=== PATIENT | male | born 1955 | race African-American/Black ===

== ENCOUNTER 2024-03-26 04:54 | Day surgery (SDC) | payer OTHER ==
[2024-03-25 09:45] VITALS: BMI 25.3
[2024-03-26 10:33] VITALS: TEMP 98.2
[2024-03-26 10:46] VITALS: BP 115/78; PULSE 65; RESP 17
== END 2024-03-26 11:05 | disposition home or self-care (01) ==
LOC: JASU-ENDO 04:54
PROVIDERS: ATTEND Internal Medicine Gastroenterology
PROC: 0DJD8ZZ Inspection of Lower Intestinal Tract, Via Natural or Artificial Opening Endoscopic (ICD-10-PCS; principal; 2024-03-26 09:00)
DX: Z12.11 Encounter for screening for malignant neoplasm of colon (principal); K57.30 Diverticulosis of large intestine without perforation or abscess without bleeding; K64.8 Other hemorrhoids

== ENCOUNTER 2024-04-05 07:11 | Inpatient (IN) | payer OTHER ==
[2024-04-05 08:35] LABS: BASO % 0.8 % (0-2.0); EOS % 1.9 % (0-4.5); HEMATOCRIT 47.9 % (35.4-49); HEMOGLOBIN 15.5 GM/dL (11.7-16.9); LYMPH % 36.8 % (8-40); MCH 30.2 pg (25.7-33.7); MCHC 32.4 g/dl (32.0-35.9); MEAN CELL VOLUME 93.3 fl (80-96); MONO % 7.8 % (3.8-10.2); NEUT % 52.7 % (42.8-82.8); PLATELET COUNT 198 10^3/uL (134-434); RBC 5.13 M/mm3 (4.00-5.60); RDW 13.1 % (11.9-15.9); WHITE BLOOD COUNT 2.7 K/mm3 (4.0-10.0)
[2024-04-05 08:51] LABS: INR 1.12 (0.83-1.09); PROTHROMBIN TIME (PATIENT) 12.8 SEC (9.7-13.0)
[2024-04-05 08:54] LABS: ACTIVATED PTT 27.6 SECONDS (25.2-36.5)
[2024-04-05 08:56] LABS: PH,URINE 5.5 (5.0-8.0); URINE APPEARANCE CLEAR; URINE BILIRUBIN NEGATIVE (NEGATIVE); URINE COLOR YELLOW; URINE GLUCOSE (UA) NEGATIVE (NEGATIVE); URINE KETONE NEGATIVE (NEGATIVE); URINE LEUK ESTERASE NEGATIVE (NEGATIVE); URINE NITRITE NEGATIVE (NEGATIVE); URINE PROTEIN NEGATIVE (NEGATIVE); URINE UROBILINOGEN 0.2 mg/dL (0.2-1.0)
[2024-04-05 09:00] LABS: POTASSIUM 3.9 mmol/L (3.5-5.1)
[2024-04-05 09:02] LABS: CALCIUM 9.4 mg/dL (8.5-10.1)
[2024-04-05 09:03] LABS: ALBUMIN 3.7 g/dl (3.4-5.0); BLOOD UREA NITROGEN 7.5 mg/dL (7-18)
[2024-04-05 09:06] LABS: CREATININE 1.1 mg/dL (0.55-1.3)
[2024-04-05 09:07] LABS: BILIRUBIN,TOTAL 1.3 mg/dL (0.2-1)
[2024-04-05 09:08] LABS: TOT PROT 7.3 g/dl (6.4-8.2)
[2024-04-05] MEDS ORDERED: valACYclovir HCL 500 MG TABLET (FP) ONE (22:27)
[2024-04-05] MEDS ORDERED: levETIRAcetam 500 MG TABLET (FP) PO ONE (22:27)
[2024-04-05] MEDS: valACYclovir HCL 500 MG TABLET (FP) PO SCH (22:31)
[2024-04-05] MEDS: levETIRAcetam 500 MG TABLET (FP) PO SCH (22:32)
[2024-04-06] MEDS ORDERED: valACYclovir HCL 500 MG TABLET (FP) ONE ×2 (06:10→13:47)
[2024-04-06] MEDS ORDERED: ACETAMINOPHEN 325 MG TABLET (FP) ONE (06:10)
[2024-04-06] MEDS ORDERED: ACETAMINOPHEN 500 MG TABLET (FP) ONE ×2 (06:13→13:48)
[2024-04-06] MEDS: ACETAMINOPHEN 500 MG TABLET (FP) PO PRN (06:14)
[2024-04-06] MEDS ORDERED: TAMSULOSIN HCL 0.4 MG CAP ONE (07:44)
[2024-04-06] MEDS: TAMSULOSIN HCL 0.4 MG CAP PO SCH (07:46)
[2024-04-06 08:12] LABS: BASO % 0.8 % (0-2.0); EOS % 2.8 % (0-4.5); HEMATOCRIT 46.2 % (35.4-49); HEMOGLOBIN 15.6 GM/dL (11.7-16.9); LYMPH % 38.6 % (8-40); MCH 31.1 pg (25.7-33.7); MCHC 33.8 g/dl (32.0-35.9); MEAN CELL VOLUME 91.8 fl (80-96); MEAN PLT VOLUME 9.5 fl (7.5-11.1); MONO % 8.4 % (3.8-10.2); NEUT % 49.4 % (42.8-82.8); PLATELET COUNT 155 10^3/uL (134-434); RBC 5.03 M/mm3 (4.00-5.60); RDW 13.4 % (11.9-15.9); WHITE BLOOD COUNT 3.9 K/mm3 (4.0-10.0)
[2024-04-06 08:27] LABS: POTASSIUM 4.2 mmol/L (3.5-5.1)
[2024-04-06 08:35] LABS: ALBUMIN 3.5 g/dl (3.4-5.0); CALCIUM 9.2 mg/dL (8.5-10.1); CREATININE 0.9 mg/dL (0.55-1.3)
[2024-04-06 08:36] LABS: BILIRUBIN,TOTAL 1.2 mg/dL (0.2-1); BLOOD UREA NITROGEN 10.6 mg/dL (7-18); TOT PROT 6.9 g/dl (6.4-8.2)
[2024-04-06] MEDS ORDERED: levETIRAcetam 500 MG TABLET (FP) PO ONE ×2 (10:04→20:17)
[2024-04-06] MEDS ORDERED: ENOXAPARIN NA (PORCINE) 40 MG/0.4 ML DISP.SYRIN SQ ONE (10:04)
[2024-04-06] MEDS: ENOXAPARIN NA (PORCINE) 40 MG/0.4 ML DISP.SYRIN SQ SCH (10:17)
[2024-04-06] MEDS: VALPROIC ACID 250 MG CAPSULE PO SCH (10:17)
[2024-04-06 23:56] VITALS: BMI 25.9
[2024-04-07 12:27] LABS: HEMOGLOBIN 16.6 GM/dL (11.7-16.9); MCH 31.7 pg (25.7-33.7); MCHC 34.5 g/dl (32.0-35.9); MEAN CELL VOLUME 91.9 fl (80-96); MEAN PLT VOLUME 9.9 fl (7.5-11.1); PLATELET COUNT 203 10^3/uL (134-434); RBC 5.22 M/mm3 (4.00-5.60); RDW 13.3 % (11.9-15.9); WHITE BLOOD COUNT 3.3 K/mm3 (4.0-10.0)
[2024-04-07 12:51] LABS: POTASSIUM 3.9 mmol/L (3.5-5.1)
[2024-04-07 12:53] LABS: ALBUMIN 3.7 g/dl (3.4-5.0); BLOOD UREA NITROGEN 9.3 mg/dL (7-18); CALCIUM 9.3 mg/dL (8.5-10.1)
[2024-04-07 12:56] LABS: BILIRUBIN,DIRECT 0.3 mg/dL (0.0-0.2); CREATININE 0.9 mg/dL (0.55-1.3)
[2024-04-07 12:58] LABS: BILIRUBIN,TOTAL 1.2 mg/dL (0.2-1); TOT PROT 7.3 g/dl (6.4-8.2)
[2024-04-07] MEDS: GABAPENTIN 100 MG CAPSULE PO SCH (15:55)
[2024-04-07] MEDS: MECLIZINE HCL 12.5 MG TABLET PO PRN (21:16)
[2024-04-08 07:14] LABS: HEMATOCRIT 47.4 % (35.4-49); MCH 31.4 pg (25.7-33.7); MCHC 33.7 g/dl (32.0-35.9); MEAN CELL VOLUME 93.1 fl (80-96); MEAN PLT VOLUME 9.4 fl (7.5-11.1); PLATELET COUNT 198 10^3/uL (134-434); RDW 13.3 % (11.9-15.9); WHITE BLOOD COUNT 3.6 K/mm3 (4.0-10.0)
[2024-04-08 07:25] LABS: POTASSIUM 4.2 mmol/L (3.5-5.1)
[2024-04-08 07:28] LABS: ALBUMIN 3.4 g/dl (3.4-5.0); CALCIUM 9.2 mg/dL (8.5-10.1)
[2024-04-08 07:29] LABS: BLOOD UREA NITROGEN 8.1 mg/dL (7-18)
[2024-04-08 07:30] LABS: MAGNESIUM 2.1 mg/dL (1.8-2.4)
[2024-04-08 07:32] LABS: PHOSPHOROUS 3.7 mg/dL (2.5-4.9)
[2024-04-08 07:33] LABS: BILIRUBIN,TOTAL 1.1 mg/dL (0.2-1); TOT PROT 6.7 g/dl (6.4-8.2)
[2024-04-08] MEDS: GABAPENTIN 100 MG CAPSULE PO SCH (22:23)
[2024-04-09] MEDS: SODIUM CHLORIDE 1,000 ML IV SCH (10:04)
[2024-04-09] MEDS: LIDOCAINE 5% TOPICAL PATCH TP ONE (12:22)
[2024-04-09] MEDS: POLYETHYLENE GLYCOL (HEALTHYLAX) 3350 17 GM PACKET PO SCH (12:46)
[2024-04-09] MEDS: LIDOCAINE PATCH REMOVAL MC ONE (21:39)
[2024-04-10 08:02] LABS: POTASSIUM 4.6 mmol/L (3.5-5.1)
[2024-04-10 08:09] LABS: ALBUMIN 3.1 g/dl (3.4-5.0); BLOOD UREA NITROGEN 7.7 mg/dL (7-18); CALCIUM 8.8 mg/dL (8.5-10.1)
[2024-04-10 08:14] LABS: BILIRUBIN,TOTAL 0.9 mg/dL (0.2-1); CREATININE 0.9 mg/dL (0.55-1.3); TOT PROT 6.5 g/dl (6.4-8.2)
[2024-04-10] MEDS: SODIUM CHLORIDE 1,000 ML IV SCH (09:34)
[2024-04-10] MEDS: NEOMYCIN/POLYMYXN/HC OTIC SOLUTION 10 ML BOTTLE AU SCH (12:44)
[2024-04-10] MEDS: ACETAMINOPHEN 1000 MG/100 ML BAG IVPB ONE (16:49)
[2024-04-10] MEDS: LIDOCAINE 5% TOPICAL PATCH TP ONE (16:50)
[2024-04-10] MEDS: LIDOCAINE PATCH REMOVAL MC SCH (21:52)
[2024-04-11] MEDS: LIDOCAINE 4% PATCH TP SCH (18:50)
[2024-04-11] MEDS: ACETAMINOPHEN 1000 MG/100 ML BAG IVPB PRN (19:42)
[2024-04-11] MEDS: LIDOCAINE PATCH REMOVAL MC SCH (21:43)
[2024-04-12 03:15] VITALS: RESP 18
[2024-04-12 07:29] LABS: BASO % 0.7 % (0-2.0); EOS % 3.2 % (0-4.5); HEMATOCRIT 46.2 % (35.4-49); HEMOGLOBIN 15.4 GM/dL (11.7-16.9); LYMPH % 35.3 % (8-40); MCH 30.8 pg (25.7-33.7); MCHC 33.3 g/dl (32.0-35.9); MEAN CELL VOLUME 92.6 fl (80-96); MEAN PLT VOLUME 9.4 fl (7.5-11.1); MONO % 9.1 % (3.8-10.2); NEUT % 51.7 % (42.8-82.8); PLATELET COUNT 197 10^3/uL (134-434); RBC 4.99 M/mm3 (4.00-5.60); RDW 13.3 % (11.9-15.9); WHITE BLOOD COUNT 4.5 K/mm3 (4.0-10.0)
[2024-04-12 08:13] LABS: ALBUMIN 3.4 g/dl (3.4-5.0); BLOOD UREA NITROGEN 8.9 mg/dL (7-18); MAGNESIUM 2.1 mg/dL (1.8-2.4)
[2024-04-12 08:15] LABS: CALCIUM 9.2 mg/dL (8.5-10.1)
[2024-04-12 08:16] LABS: PHOSPHOROUS 3.6 mg/dL (2.5-4.9)
[2024-04-12 08:17] LABS: BILIRUBIN,TOTAL 0.9 mg/dL (0.2-1); TOT PROT 6.8 g/dl (6.4-8.2)
[2024-04-12] MEDS: ENOXAPARIN NA (PORCINE) 40 MG/0.4 ML DISP.SYRIN SQ SCH (10:49)
[2024-04-12] MEDS: MINERAL OIL ENEMA 133 ML ENEMA RC ONE (11:14)
[2024-04-12] MEDS: SODIUM CHLORIDE 1,000 ML IV SCH (18:18)
[2024-04-12] MEDS ORDERED: levETIRAcetam 250 MG TABLET PO ONE (21:05)
[2024-04-12] MEDS: levETIRAcetam 500 MG TABLET (FP) PO SCH (22:06)
[2024-04-13 07:35] LABS: BASO % 0.4 % (0-2.0); EOS % 2.7 % (0-4.5); HEMOGLOBIN 15.3 GM/dL (11.7-16.9); MCH 31.4 pg (25.7-33.7); MEAN CELL VOLUME 92.4 fl (80-96); MEAN PLT VOLUME 9.5 fl (7.5-11.1); MONO % 9.2 % (3.8-10.2); NEUT % 52.7 % (42.8-82.8); PLATELET COUNT 218 10^3/uL (134-434); RBC 4.87 M/mm3 (4.00-5.60); RDW 13.9 % (11.9-15.9); WHITE BLOOD COUNT 3.2 K/mm3 (4.0-10.0)
[2024-04-13 07:54] LABS: POTASSIUM 4.2 mmol/L (3.5-5.1)
[2024-04-13 07:59] LABS: ALBUMIN 3.6 g/dl (3.4-5.0); BLOOD UREA NITROGEN 7.2 mg/dL (7-18); CALCIUM 9.2 mg/dL (8.5-10.1); MAGNESIUM 2.2 mg/dL (1.8-2.4)
[2024-04-13 08:02] LABS: CREATININE 0.9 mg/dL (0.55-1.3)
[2024-04-13 08:03] LABS: PHOSPHOROUS 3.2 mg/dL (2.5-4.9)
[2024-04-13 08:04] LABS: BILIRUBIN,TOTAL 1.2 mg/dL (0.2-1); TOT PROT 6.9 g/dl (6.4-8.2)
[2024-04-13] MEDS ORDERED: ASPIRIN 81 MG CHEWABLE TABLETS PO SCH (16:15)
[2024-04-13] MEDS ORDERED: CLOPIDOGREL BISULFATE 75 MG TABLET (FP) PO SCH (16:15)
[2024-04-13] MEDS: ASPIRIN COATED 81 MG TABLET.EC PO SCH (17:02)
[2024-04-13] MEDS: CLOPIDOGREL BISULFATE 75 MG TABLET (FP) PO SCH (17:02)
[2024-04-13] MEDS: ROSUVASTATIN CA 20 MG TABLET PO SCH (21:37)
[2024-04-14 08:04] LABS: HEMATOCRIT 46.8 % (35.4-49); HEMOGLOBIN 15.6 GM/dL (11.7-16.9); MCH 30.9 pg (25.7-33.7); MCHC 33.3 g/dl (32.0-35.9); MEAN PLT VOLUME 8.7 fl (7.5-11.1); PLATELET COUNT 226 10^3/uL (134-434); RBC 5.03 M/mm3 (4.00-5.60); RDW 13.4 % (11.9-15.9); WHITE BLOOD COUNT 3.8 K/mm3 (4.0-10.0)
[2024-04-14 08:27] LABS: POTASSIUM 4.2 mmol/L (3.5-5.1)
[2024-04-14 08:28] LABS: CALCIUM 9.5 mg/dL (8.5-10.1)
[2024-04-14 08:29] LABS: ALBUMIN 3.4 g/dl (3.4-5.0); BLOOD UREA NITROGEN 7.6 mg/dL (7-18)
[2024-04-14 08:34] LABS: BILIRUBIN,TOTAL 1.5 mg/dL (0.2-1); TOT PROT 6.9 g/dl (6.4-8.2)
[2024-04-14 18:41] VITALS: BP 126/83; PULSE 73; TEMP 98.1
== END 2024-04-14 19:01 | disposition home or self-care (01) | DRG 312 ==
LOC: JER 07:11 → UNDOADMOB 11:16 → JERBED 11:16 → OBSVTOIN 13:36 → INTOOBSV 13:36 → J4W 04-06 21:47 → JERBED 04-06 21:47 → J4W 04-07 09:43 → JERBED 04-07 09:43 → OBSVTOIN 04-11 10:36
PROVIDERS: ADMIT Internal Medicine; ATTEND Internal Medicine
DX: R55 Syncope and collapse (principal); I63.9 Cerebral infarction, unspecified; G40.909 Epilepsy, unspecified, not intractable, without status epilepticus; I49.8 Other specified cardiac arrhythmias; B02.9 Zoster without complications; E86.0 Dehydration; H66.92 Otitis media, unspecified, left ear; K59.00 Constipation, unspecified; N40.0 Benign prostatic hyperplasia without lower urinary tract symptoms
CPT/HCPCS: 0241U-QW; 36415; 70450-TC; 70551-TC; 71045-TC-FY; 74018-TC-FY; 80053; 80061; 80164; 80177; 81003; 82248; 82962; 83036; 83735; 84100; 84443; 84484; 85025; 85027; 85610; 85730; 86850; 86900; 86901; 87086; 93005; 93010; 93306-TC; 93880-TC; 93971-TC; 97116-GP; 97161-GP; 99285-25; G0378; J0131